=== PATIENT | female | born 1955 | race Caucasian/White ===

== ENCOUNTER 2025-03-27 22:21 | Emergency (ER) | payer OTHER, MEDICARE, SELFPAY ==
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
[2025-03-27 22:27] VITALS: BP 179/99; PULSE 108; RESP 19; TEMP 36.8; O2SAT 100
[2025-03-27 23:23] LABS: Basophils Percent Auto 0.4 % (0.2-1.2); Eosinophils Absolute Auto 0.1 K/mm3 (0-0.3); Eosinophils Percent Auto 1.6 % (0-4.4); Hematocrit 36.8 % (37.0-47.0); Hemoglobin 11.7 g/dL (12.0-15.0); Immature Granulocyte Absolute 0.05 K/mm3 (0.00-0.031); Immature Granulocyte Percent A 0.7 % (0-0.5); Lymphocytes Percent Auto 25.7 % (18.3-44.2); Mean Corpuscular HGB Conc 31.8 g/dl (32-36); Mean Corpuscular Hemoglobin 29.5 pg (26-34); Mean Corpuscular Volume 92.9 fl (80-100); Mean Platelet Volume 9.1 fl (7.4-10.4); Monocytes Absolute Auto 0.7 K/mm3 (0.1-0.6); Monocytes Percent Auto 9.2 % (2.6-8.5); Neutrophils Absolute Auto 4.6 K/mm3 (1.3-6.7); Neutrophils Percent Auto 62.4 % (45.5-73.1); Platelet Count Result 246 k/mm3 (150-375); Red Blood Count 3.96 M/mm3 (4.2-5.4); Red Cell Distribution Width 14.9 % (11.5-14.5); White Blood Count 7.4 K/mm3 (4.5-10.0)
[2025-03-27 23:36] LABS: Alanine Aminotransferase 17 U/L (6-35); Albumin Level 4.3 g/dL (3.5-5.1); Alkaline Phosphatase 125 U/L (38-126); Anion Gap 8 mmol/L (4-12); Aspartate Amino Transferase 36 U/L (14-36); Bilirubin,Total 0.3 mg/dL (0.2-1.3); Blood Urea Nitrogen 18 mg/dL (7-17); Calcium 9.1 mg/dL (8.4-10.2); Carbon Dioxide 26 mmol/L (22-30); Chloride 102 mmol/L (98-107); Estimated CRCL calculation 65 ml/min; Estimated Glomerular Filt Rate > 60; Glucose 102 mg/dL (65-110); Lipase 123 U/L (23-300); Potassium 3.6 mmol/L (3.4-5.0); Sodium 136 mmol/L (137-145)
[2025-03-27 23:41] LABS: INR 0.9; Prothrombin Time 12.6 Seconds (11.1-14.7)
[2025-03-27 23:42] LABS: Partial Thromboplastin Time 26.3 Seconds (22.3-36.8)
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
[2025-03-28 01:05] VITALS: BP 160/78; PULSE 96; RESP 19; O2SAT 98
[2025-03-28 02:26] LABS: Add Urine Microscopic? NO; Appearance Urine Clear (Clear); Bilirubin Urine Negative (Negative); Blood Urine Negative (Negative); Color Urine Yellow (Yellow); Glucose Urine UA Negative (Negative); Ketones Urine Negative (Negative); Leukocyte Esterase Ur Negative LEU/UL (Negative); Nitrate Urine Negative (Negative); Protein Urine Negative (Negative); Specific Grav Ur 1.013 (1.001-1.035); Urobilinogen Urine 0.2 mg/dL (<2.0)
[2025-03-28 02:34] VITALS: BP 153/83; PULSE 91; RESP 16; O2SAT 97
[2025-03-28] MEDS: ACETAMINOPHEN 500 MG TABLET 1000 MG PO (02:45)
[2025-03-28] MEDS: CYCLOBENZAPRINE HCL 5 MG TABLET PO (02:45)
[2025-03-28 04:43] VITALS: BP 150/87; PULSE 83; RESP 17; TEMP 36.9; O2SAT 98
[2025-03-28 04:47] VITALS: BP 150/87; PULSE 83; RESP 17; TEMP 36.9; O2SAT 98
== END 2025-03-28 04:49 | disposition home or self-care (01) ==
PROVIDERS: Emergency Provider Physician Assistant
DX: S16.1XXA Strain of muscle, fascia and tendon at neck level, initial encounter (principal); S29.012A Strain of muscle and tendon of back wall of thorax, initial encounter; S39.012A Strain of muscle, fascia and tendon of lower back, initial encounter; S90.511A Abrasion, right ankle, initial encounter; S60.211A Contusion of right wrist, initial encounter; K44.9 Diaphragmatic hernia without obstruction or gangrene; R16.0 Hepatomegaly, not elsewhere classified; R16.1 Splenomegaly, not elsewhere classified; V43.63XA Car passenger injured in collision with pick-up truck in traffic accident, initial encounter
CPT/HCPCS: 36415; 70450; 71260; 72125; 72129; 72132; 73110; 73610; 74177; 80053; 81003; 83690; 85025; 85610; 85730; 99284; A9270; Q9967